=== PATIENT | male | born 1960 | race Caucasian/White ===

== ENCOUNTER 2020-09-24 09:56 | Day surgery (SDC) | payer BC ==
[~2020-09-24] VITALS: Ht 182.9 cm; Wt 85.0 kg
[2020-09-24] VITALS (12 sets, daily range): BP systolic 98–128; BP diastolic 48–87; PULSE 58–76; TEMP 98.1
[2020-09-24 11:22] LABS: HEMATOCRIT 46.8 % (42.0-52.0); HEMOGLOBIN 15.7 g/dl (13.5-18.0); MEAN CELL VOLUME 89 fl (80.0-100.0); MEAN CORPUSCULAR HEMOGLOBIN 30 pg (27.0-31.0); MEAN CORPUSCULAR HGB CONC 34 g/dl (33.0-37.0); MEAN PLATELET VOLUME 9.1 fl (7.4-10.4); PLATELET COUNT 198 K/mm3 (130-400); RED BLOOD COUNT 5.24 M/mm3 (4.20-5.60); REDCELL DISTRIBUTION WIDTH-CV 13.2 % (11.5-14.5)
[2020-09-24 11:26] LABS: PROTHROMBIN TIME 11.6 SECONDS (9.7-12.8)
[2020-09-24 11:29] LABS: CALCIUM 9.8 mg/dL (8.4-10.2); CREATININE, serum 0.74 (0.66-1.25); POTASSIUM 4.2 mmol/L (3.4-5.0)
[2020-09-24 11:34] LABS: PARTIAL THROMBOPLASTIN TIME 28.8 SECONDS (26.0-37.0)
[2020-09-24] MEDS ORDERED: SINGULAIR 110 MG/TAB PO (11:45)
[2020-09-24] MEDS ORDERED: FLOMAX 0.40.4 MG/CAP PO (11:45)
[2020-09-24] MEDS ORDERED: PROZAC 20MG20 MG PO (11:46)
[2020-09-24] MEDS ORDERED: TOPROL XL 25MG25 MG PO (11:46)
[2020-09-24] MEDS ORDERED: MOBIC15 MG PO (11:46)
[2020-09-24] MEDS ORDERED: PERCOCET 325 MG1 TA2 PO (11:47)
[2020-09-24] MEDS ORDERED: ZESTRIL2.5 MG PO (11:47)
--- NOTE | 2020-09-24 12:11 | NUR ---
SEE MERGE DOCUMENTATION FOR MEDICATION ADMINISTRATION AND INTRA/POST PROCEDURE SEDATION ASSESSMENTS.
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
--- NOTE | 2020-09-24 16:16 | NUR ---
TR band has been deflated with no problem, site dressed with bandaid, folded 2x2 and coban. i have reviewed dc/fu instructions with pt and , no questions or concerns expressed at time of departure. pt has been up and steady on feet, iv dc'd with cath intact, dressing was applied. to exit via wheelchair.
== END 2020-09-24 18:45 | disposition home or self-care (01) ==
LOC: COL.CAR 09:56
PROVIDERS: Internal Medicine Cardiovascular Disease
DX: I42.8 Other cardiomyopathies (principal); I51.9 Heart disease, unspecified; I44.7 Left bundle-branch block, unspecified; J44.9 Chronic obstructive pulmonary disease, unspecified; Z20.822 Contact with and (suspected) exposure to COVID-19; Z87.891 Personal history of nicotine dependence; Z79.899 Other long term (current) drug therapy; Z79.891 Long term (current) use of opiate analgesic
CPT/HCPCS: J1644; J2250; J3010; Q9967